=== PATIENT | female | born 1985 | race Hispanic/Latino ===

== ENCOUNTER 2022-08-13 07:29 | Day surgery (SDC) | payer SELFPAY ==
[~2022-08-13] VITALS: Ht 175.3 cm; Wt 95.3 kg
[~2022-08-13 07:29] MED LIST: ROSUVASTATIN CAL5 MG PO
[2022-08-13 10:12] VITALS: BP 119/78
== END 2022-08-13 10:25 | disposition home or self-care (01) | DRG 395 ==
LOC: ENDO 07:29 → ORM 09:00 → ENDO 10:25
PROVIDERS: ATTEND Surgery
PROC: 0DJD8ZZ Inspection of Lower Intestinal Tract, Via Natural or Artificial Opening Endoscopic (ICD-10-PCS; principal; 2022-08-13)
DX: K64.8 Other hemorrhoids (principal); K64.4 Residual hemorrhoidal skin tags; F17.200 Nicotine dependence, unspecified, uncomplicated; Z86.010 Personal history of colon polyps